=== PATIENT | female | born 1985 | race Caucasian/White ===

== ENCOUNTER 2017-02-24 18:46 | Outpatient (CLI) | payer OTHER ==
[2017-02-24 19:32] VITALS: BP 118/75
--- NOTE | 2017-02-24 21:02 | IPNPDOC ---
Text Note Date of Service The patient was seen on 02/24/17. NOTE Deb is a 31yo with SIUP at approximately 34wk who presents today with an episode of spotting, cramping and right back pain. She states she had one episode of light spotting earlier today. She was feeling cramping all morning so called the triage line who told her to drink water which she did and her cramping went away. However, her right back pain continued which concerned her. Good movement. No regular ctx. No LOF. No further VB. Vitals wnl General: WDWN, NAD, A&O x3 Abdomen: soft, gravid, NTTP Back: Right CVAT noted, no left CVAT SCE (RN as conveyor technician): /-3 FHRT: bl 130's, +accels, -decels, mod ke[place]: no ctx Labs: Urinalysis wnl Urine cx pending Assessment: Deb is a 31yo with SIUP at approximately 34wk with no evidence of active labor or pyelonephritis. Right CVAT likely related to musculoskeletal cause rather than renal. Vitals wnl, reassuring status. Urinalysis wnl. Plan: -Keep next OB appt, routine 36wk -Return precautions discussed -Safe for discharge MD Tonya Miller Katrina D MD Feb 24, 2017 21:02
== END 2017-02-24 21:00 | disposition home or self-care (01) ==
LOC: M LDO 18:46
PROVIDERS: ATTEND Obstetrics & Gynecology
DX: O26.853 Spotting complicating pregnancy, third trimester (principal); Z3A.34 34 weeks gestation of pregnancy; M54.9 Dorsalgia, unspecified; R10.9 Unspecified abdominal pain; O26.893 Other specified pregnancy related conditions, third trimester

== ENCOUNTER 2017-04-03 02:41 | Outpatient (CLI) | payer OTHER | END 2017-04-03 04:30 | disposition home or self-care (01) | LOC: M LDO 02:41 | DX: O47.1 False labor at or after 37 completed weeks of gestation (principal); Z3A.39 39 weeks gestation of pregnancy | CPT/HCPCS: 59025 ==

== ENCOUNTER 2017-04-03 22:40 | Inpatient (IN) | payer OTHER ==
[2017-04-03] MEDS ORDERED: OXYTOCIN 30 UNITS IN 0.9% NaCl 500ML IV BAG (J2590) As Ordered (23:32)
[2017-04-03 23:41] LABS: MEAN CORPUSCULAR HGB CONC 30.7 g/dl (32.0-36.5); MEAN CORPUSCULAR VOLUME 81.5 fl (80.0-96.0); PLATELET COUNT, AUTOMATED 473 10^3/uL (150-450); RED CELL DISTRIBUTION WIDTH 15.4 % (11.5-14.5)
[2017-04-03] MEDS ORDERED: METOCLOPRAMIDE INJ 10MG/2ML VIAL (J2765) IV (23:45)
[2017-04-03] MEDS ORDERED: MEASLES,MUMPS,RUBELLA VACCINE INJ (MMR-II) (90707) SC (23:45)
[2017-04-03] MEDS ORDERED: RHOGAM 300 MCG (1500 IU) INJ (J2790) IM (23:45)
[2017-04-03] MEDS: OXYTOCIN DRIP 30 UNITS in APPROPRIATE DILUENT 1 EA IV (23:45)
[2017-04-03] MEDS ORDERED: ACETAMINOPHEN TAB 650MG DOSE (2X325MG) PO (23:45)
[2017-04-03] MEDS ORDERED: IBUPROFEN 800 MG TAB PO (23:45)
[2017-04-04] MEDS ORDERED: INFLUENZA QUADRIVALENT PF VACCINE 0.5ML SYRINGE (90686) IM (09:00)
[2017-04-04] MEDS: DOCUSATE SODIUM 100 MG CAP PO ×2 (09:18→21:54)
[2017-04-04] MEDS: PRENATAL VITAMINS CHEWABLE TABLET PO (09:18)
[2017-04-05] MEDS: PRENATAL VITAMINS CHEWABLE TABLET PO (08:39)
[2017-04-05] MEDS: DOCUSATE SODIUM 100 MG CAP PO (08:39)
[2017-04-05] MEDS: INFLUENZA QUADRIVALENT PF VACCINE 0.5ML SYRINGE (90686) IM (10:37)
== END 2017-04-05 10:45 | disposition home or self-care (01) | DRG 775 ==
LOC: M LDO 22:40 → M OBS 04-04 01:43 → M LDI 22:49
PROVIDERS: Obstetrics & Gynecology
PROC: 10E0XZZ Delivery of Products of Conception, External Approach (ICD-10-PCS; principal; 2017-04-03)
DX: O80 Encounter for full-term uncomplicated delivery (principal); Z37.0 Single live birth; Z3A.39 39 weeks gestation of pregnancy

== ENCOUNTER → 2018-09-28 | Outpatient (CLI) | payer OTHER ==
[~2018-09-28] MED LIST: COLA100C5 PO; MOTR200T44 PO; PRENTAB55 PO; TYLE325T5 PO
--- NOTE | 2018-09-28 10:16 | REP ---
Clinical: Pain with recent trauma. Technique: AP, lateral, bilateral oblique views of the right foot. Findings: No acute fracture dislocation. Skeletal structures, joint spaces, and surrounding soft tissues appear normal. No subcutaneous emphysema or radiodense foreign body. Impression: Age-appropriate examination. No acute fracture or dislocation. Electronically Signed by Rafael Estrada MD 09/28/2018 10:08 A
== END ==
LOC: M LRY 09:40
PROVIDERS: ATTEND Physician Assistant
DX: M79.671 Pain in right foot (principal)
CPT/HCPCS: 73630; G0463